=== PATIENT | female | born 1960 | race Caucasian/White ===

== ENCOUNTER 2016-10-14 19:57 | Observation (INO) ==
[2016-10-14 20:46] LABS: Basophils # 0.1 K/mcL (0.0-0.2); Basophils % 0.7 %; Eosinophils # 0.6 K/mcL (0.0-0.6); Eosinophils % 6.8 %; Hematocrit 41.7 % (35.3-44.9); Hemoglobin 13.7 g/dL (11.5-15.4); Immature Granulocytes % 0.8 % (0-4); Lymphocytes # 2.2 K/mcL (0.6-4.6); Lymphocytes % 25.6 %; Mean Corpuscular HGB Conc 32.9 g/dL (31.6-35.5); Mean Corpuscular Hemoglobin 28.9 pg (28.0-33.3); Mean Platelet Volume 12.2 fL (9.4-12.4); Monocytes # 0.6 K/mcL (0.0-1.3); Monocytes % 7.6 %; Neutrophils # 4.9 K/mcL (1.6-8.9); Platelet Count 151 K/mcL (140-400); Red Blood Count 4.74 M/mcL (3.82-4.97); Red Cell Distribution Width 12.8 % (11.5-14.5); Segmented Neutrophils % 58.5 %
[2016-10-14 20:53] LABS: Prothrombin Time 10.7 Seconds (9.4-12.1)
[2016-10-14 20:56] LABS: Activated Partial Thrombo Time 30.2 Seconds (26.0-36.0)
[2016-10-14 21:00] LABS: Calcium 9.9 mg/dL (8.6-10.8)
[2016-10-14 22:03] LABS: Bilirubin,Urine Negative (Negative); Blood,Urine Negative (Negative); Clarity,Urine Clear (Clear); Color,Urine Yellow (Yellow); Glucose,Urine (UA) Normal (Normal); Ketones,Urine Negative (Negative); Leukocyte Esterase,Urine Negative (Negative); Nitrite,Urine Negative (Negative); Protein,Urine Trace mg/dL (Neg-Trace); Urobilinogen,Urine Normal (Normal)
[2016-10-14] MEDS ORDERED: Nitroglycerin 0.4 MG TAB.SUBL SL PRN (23:06)
--- NOTE | 2016-10-14 23:10 | Emergency Department Note ---
Disposition Clinical Impression: Chest pain, Unstable angina pectoris, Hyperglycemia, Noncompliance with medication regimen, Elevated blood pressure reading with diagnosis of hypertension Disposition: Admitted As Inpatient Condition: Fair Referrals: Grace Valerio CNP [Primary Care Provider] - Forms: ED Satisfaction Letter Chest Pain HPI - General Chief Complaint: ED Chest Pain Stated Complaint: CP Time Seen by Provider: 10/14/16 22:59 Source: patient Mode of arrival: ambulatory Limitations: no limitations Vital Signs Reviewed: Yes Nursing Notes Reviewed: Yes - History of Present Illness HPI Narrative: Patient is a 56-year-old white female with history of diabetes hypertension and high cholesterol and prior VT with stent placement, who presents here with complaints of chest pain under her left breast since 4 PM. Patient has not been compliant consistently with her medications, and states that she has been off her medicines for about a week until she just recently got them refilled and restarted 2 days ago. Patient states that she has not seen her pediatric anesthesiologist in over a year and a half, she had been seeing Dr. Fabian, but does admit to occasional episodes of unstable angina which are very short- lived. Patient states this is the longest episode she has experienced and it was associated with nausea. Currently in the emergency department patient complaining of 4/10 ongoing pain in the left anterior chest wall just below her left breast. Patient denies any diaphoresis, no vomiting, no migration into the abdomen or back. Patient denies any lightheadedness or syncope. When asked how her blood sugars have been running patient states "I do not know I do not check them". Patient with no other complaints at this time. Pt complaint: chest pain Severity scale (1-10): 8 - Related Data Home Medications Medication Instructions Recorded Confirmed Amlodipine [Norvasc] 10 mg PO DAILY 05/12/15 05/12/15 Aspirin Enteric Coated [Aspirin EC] 81 mg PO DAILY 05/12/15 05/12/15 Citalopram Hydrobromide [Celexa] 20 mg PO HS 05/12/15 05/12/15 Clopidogrel [Plavix] 75 mg PO DAILY 05/12/15 05/12/15 Doxazosin [Cardura] 2 mg PO BID 05/12/15 05/12/15 Furosemide [Lasix] 20 mg PO DAILY 05/12/15 05/12/15 Gabapentin [Neurontin] 300 mg PO TID 05/12/15 05/12/15 GlipiZIDE XL (24 HR) [Glucotrol XL] 5 mg PO DAILY 05/12/15 05/12/15 Metformin [Glucophage] 1,000 mg PO BIDWM 05/12/15 05/12/15 Metoprolol [Lopressor] 50 mg PO HS 05/12/15 05/12/15 Metoprolol [Lopressor] 100 mg PO QAM 05/12/15 05/12/15 Nitroglycerin [Nitrostat] 0.4 mg SL Q5M PRN 05/12/15 05/12/15 Previous Rx's Medication Instructions Recorded OxyCODONE/APAP 5/325 [Percocet 1 each PO Q6HR PRN #30 tablet 05/12/15 5/325] Sulfamethoxazole/Trimeth DS 1 each PO BID #6 tablet 10/10/16 [Bactrim DS] Allergies Allergy/AdvReac Type Severity Reaction Status Date / Time Penicillins AdvReac Gastrointestinal Verified 10/10/16 06:43 Upset All systems ED: reviewed and negative except as stated. Constitutional: Denies: fever, chills ENT ED: Denies: ear pain, throat pain, congestion Cardiovascular: Reports: chest pain. Denies: palpitations, dyspnea on exertion , orthopnea, edema, syncope, paroxysmal nocturnal dyspnea Respiratory: Denies: cough, dyspnea, wheezes Gastrointestinal: Reports: nausea. Denies: abdominal pain, vomiting, diarrhea Genitourinary: Denies: urgency, dysuria, frequency Musculoskeletal: Denies: back pain, neck pain Integumentary: Denies: rash Neurological: Denies: headache, weakness, numbness, paresthesias, vertigo Psychiatric: Denies: anxiety, depression Endocrine: Denies: fatigue Hematological/Lymphatic: Denies: easy bleeding, easy bruising Chest Pain PMH - Past Medical History Medical history: Reports: asthma, coronary artery disease, diabetes, fibromyalgia, hypertension, other Surgical history: Reports: cataract, cholecystectomy, other Psychiatric history: Reports: no psych history [employer]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 Absent: lymphadenopathy - Chest Chest inspection: Present: normal inspection, symmetric chest wall rise. Absent : tenderness - Respiratory Respiratory exam: Present: normal lung sounds bilaterally, respiratory distress , wheezes, stridor - Cardiovascular Cardiovascular exam: Present: regular rate, normal rhythm, normal heart sounds - Abdominal Exam Abdominal exam: Present: soft, Non-Tender, normal bowel sounds. Absent: distention, guarding, rebound, rigidity - Rectal Exam Rectal exam: Present: deferred - Extremities Exam Extremities exam: Present: normal inspection, full ROM, pedal edema. Absent: tenderness - Back Exam Back exam: Present: normal inspection. Absent: tenderness, CVA tenderness (R), CVA tenderness (L) - Neurological Exam Neurological exam: Present: alert, oriented X3, CN II-XII intact, normal gait, reflexes normal. Absent: motor sensory deficit - Psychiatric Psychiatric exam: Present: normal affect, normal mood - Skin Skin exam: Present: warm, dry. Absent: diaphoresis, pallor Course Course Narrative: Patient is a 56-year-old white female with multiple medical problems and prior chest pain with cardiac catheter and stent placement. Patient returns tonight with chest pain at rest since 4 PM with nausea. Patient took 3 baby aspirin at home with no improvement of her symptoms. Patient had an EKG and labs ordered from triage and upon arrival to room patient's labs are resulted with a negative troponin and a normal chest x-ray. Patient continues to have pain 4 out of 10 in severity at this time. We will initiate nitroglycerin trial and reevaluate. Patient hemodynamically stable at this time and in no acute distress. - Reevaluation(s) Reevaluation #1: Following nitroglycerin administration, 1st SL nitro brought pt's pain to 0 out of 10 in pain reports being chest pain-free. One-inch Nitropaste applied and patient given 4 mg Zofran for nausea. Patient's labs otherwise unremarkable and second troponin is negative. Considering patient's cardiovascular history will admit for further evaluation of chest pain. Chest X-Ray 10/14/16 20:03 IMPRESSION: 1. No acute cardiopulmonary disease. D/ / Vincent Shelby MD / Vincent Shelby MD Interpreting Provider: Vincent Shelby MD Time: 00:32 Vital Signs Temperature 97.5 F L 10/14/16 20:00 Pulse Rate 62 10/14/16 20:00 Respiratory Rate 18 10/14/16 20:00 Blood Pressure 191/97 10/14/16 20:00 O2 Sat by Pulse Oximetry 99 10/14/16 20:00 Temperature 97.5 F L 10/14/16 20:00 Pulse Rate 56 10/15/16 00:38 Respiratory Rate 16 10/15/16 00:38 Blood Pressure 155/86 10/15/16 00:38 O2 Sat by Pulse Oximetry 97 10/15/16 00:38 Oxygen Delivery Oxygen Delivery Room Air Chest Pain - Differential Diagnosis Likely: unstable angina pectoris, chest pain - Medical Records Medical records reviewed: Yes I reviewed the patient's medical records. - Lab Data Lab results reviewed: Yes I reviewed the patient's lab results. Result diagrams: 10/14/16 20:37 10/14/16 20:37 Lab Results 10/14/16 10/14/16 10/14/16 Range/Units 20:37 20:37 20:37 WBC 8.4 (4.3-11.1) K/mcL RBC 4.74 (3.82-4.97) M/mcL Hgb 13.7 (11.5-15.4) g/dL Hct 41.7 (35.3-44.9) % MCV 88.0 (83.0-100.0) fL MCH 28.9 (28.0-33.3) pg MCHC 32.9 (31.6-35.5) g/dL RDW 12.8 (11.5-14.5) % Plt Count 151 (140-400) K/mcL MPV 12.2 (9.4-12.4) fL Immature Gran % 0.8 (0-4) % Seg Neutrophils % 58.5 % Lymphocytes % 25.6 % Monocytes % 7.6 % Eosinophils % 6.8 % Basophils % 0.7 % Neutrophils # 4.9 (1.6-8.9) K/mcL Lymphocytes # 2.2 (0.6-4.6) K/mcL Monocytes # 0.6 (0.0-1.3) K/mcL Eosinophils # 0.6 (0.0-0.6) K/mcL Basophils # 0.1 (0.0-0.2) K/mcL PT 10.7 (9.4-12.1) Seconds INR 1.0 APTT 30.2 (26.0-36.0) Seconds Sodium 138 (136-145) mEq/L Potassium 4.0 (3.5-4.5) mEq/L Chloride 98 (98-109) mEq/L Carbon Dioxide 28 (19-29) mEq/L BUN 20 (7-20) mg/dL Creatinine 1.18 H (0.57-1.11) mg/dL Est GFR ( Amer) 57 L (> 60) Est GFR (Non-Af Amer) 47 L (> 60) BUN/Creatinine Ratio 17 (6-26) Glucose 153 H (70-99) mg/dL Calculated Osmolality 292 (280-300) Calcium 9.9 (8.6-10.8) mg/dL Troponin I (0-0.03) ng/mL Urine Color (Yellow) Urine Clarity (Clear) Urine pH (5.0-8.0) pH Units Ur Specific [place] (1.010-1.025) Urine Protein (Neg-Trace) mg/dL Urine Glucose (UA) (Normal) mg/dL Urine Ketones (Negative) mg/dL Urine Blood (Negative) Urine Nitrite (Negative) Urine Bilirubin (Negative) Urine Urobilinogen (Normal) mg/dL Ur Leukocyte Esterase (Negative) Ur Culture Indicated? (NO) 10/14/16 10/14/16 10/14/16 Range/Units 20:37 21:37 23:16 WBC (4.3-11.1) K/mcL RBC (3.82-4.97) M/mcL Hgb (11.5-15.4) g/dL Hct (35.3-44.9) % MCV (83.0-100.0) fL MCH (28.0-33.3) pg MCHC (31.6-35.5) g/dL RDW (11.5-14.5) % Plt Count (140-400) K/mcL MPV (9.4-12.4) fL Immature Gran % (0-4) % Seg Neutrophils % % Lymphocytes % % Monocytes % % Eosinophils % % Basophils % % Neutrophils # (1.6-8.9) K/mcL Lymphocytes # (0.6-4.6) K/mcL Monocytes # (0.0-1.3) K/mcL Eosinophils # (0.0-0.6) K/mcL Basophils # (0.0-0.2) K/mcL PT (9.4-12.1) Seconds INR APTT (26.0-36.0) Seconds Sodium (136-145) mEq/L Potassium (3.5-4.5) mEq/L Chloride (98-109) mEq/L Carbon Dioxide (19-29) mEq/L BUN (7-20) mg/dL Creatinine (0.57-1.11) mg/dL Est GFR ( Amer) (> 60) Est GFR (Non-Af Amer) (> 60) BUN/Creatinine Ratio (6-26) Glucose (70-99) mg/dL Calculated Osmolality (280-300) Calcium (8.6-10.8) mg/dL Troponin I 0.00 0.00 (0-0.03) ng/mL Urine Color Yellow (Yellow) Urine Clarity Clear (Clear) Urine pH 6.0 (5.0-8.0) pH Units Ur Specific [place] 1.010 (1.010-1.025) Urine Protein Trace (Neg-Trace) mg/dL Urine Glucose (UA) Normal (Normal) mg/dL Urine Ketones Negative (Negative) mg/dL Urine Blood Negative (Negative) Urine Nitrite Negative (Negative) Urine Bilirubin Negative (Negative) Urine Urobilinogen Normal (Normal) mg/dL Ur Leukocyte Esterase Negative (Negative) Ur Culture Indicated? NO (NO) - Radiology Data Radiology results reviewed: Yes I reviewed the patient's radiology results. - EKG Data EKG attestation: Yes I reviewed and interpreted this EKG. EKG results narrative: EKG interpreted by myself without benefit of formal cardiology interpretation shows a normal sinus rhythm at 61 bpm patient with left axis deviation but no evidence of acute ST-T wave changes. No significant change when compared to prior EKG from 10/08/2014
[2016-10-15] MEDS: 0.9 % Sodium Chloride 1,000 ML IVC SCH ×2 (00:08→21:52)
[2016-10-15] MEDS ORDERED: Nitroglycerin 1 INCH/GM PACKET TP ONE (00:25)
[2016-10-15] MEDS ORDERED: Ondansetron 4 MG/2 ML VIAL IVP ONE (00:30)
[2016-10-15] MEDS ORDERED: Ondansetron 4 MG/2 ML VIAL IVP PRN (02:43)
[2016-10-15] MEDS ORDERED: Acetaminophen 325 MG TABLET PO PRN (02:43)
--- NOTE | 2016-10-15 03:08 | Internal Med History&Physical ---
<Vargas James - Last Filed: 10/15/16 03:00> Date of Encounter: 10/15/16 Time of Encounter: 02:00 Assessment and Plan (1) CAD (coronary artery disease) Current visit: Yes Status: Chronic - Unstable angina with no significant ischemic change on EKG and negative troponin so far. - Continue aspirin, metoprolol, Lipitor and nitro prn pain. - Will obtain nuclear stress test for further evaluation. - Continue to trend troponin q6H. - Closely monitor with telemetry. Qualifiers: Coronary Disease-Associated Artery/Lesion type: [place] artery [place] vs. transplanted heart: [place] heart Associated angina: with unstable angina Qualified Code(s): I25.110 - Atherosclerotic heart disease of [place] coronary artery with unstable angina pectoris (2) Diabetes Current visit: Yes Status: Chronic - Will check Hgb A1C. - Start insulin sliding scale with routine AccuCheck. Qualifiers: Diabetes mellitus type: type 2 Diabetes mellitus complication status: with unspecified complications Diabetes mellitus halfway insulin use: without halfway use Qualified Code(s): E11.8 - Type 2 diabetes mellitus with unspecified complications (3) Hypertension Current visit: Yes Status: Chronic - Continue home does antihypertensive regimen. Qualifiers: Hypertension type: essential hypertension Qualified Code(s): I10 - Essential (primary) hypertension (4) Hyperlipidemia Current visit: Yes Status: Chronic - Check lipid panel. - Continue Lipitor. Qualifiers: Hyperlipidemia type: pure hypercholesterolemia Qualified Code(s): E78.00 - Pure hypercholesterolemia, unspecified; E78.0 - Pure hypercholesterolemia (5) DVT prophylaxis Current visit: Yes Status: Acute - SQ heparin. Internal Medicine - H&P: HPI Chief complaint: Chest pain Admitted From: Emergency Dept Plans for Post Hospital Care: Home History of present illness: Ms. Amanda is a 56 year old female with PMH of HTN, hyperlipidemia, DM, morbid obesity, asthma and CAD s/p cardiac cath with stent x1 in October 2014. Patient presented for chest pain starting 4 PM while patient was at work. Patient describes it as intermittent stabbing pain radiating from below left breast to left upper chest. It's same kind of patient had for heart attack. It's aggravated by exertion and alleviated by nitroglycerin. It's associated with constant nausea. Patient reports only one episode of diaphoresis at beginning and denies palpitation, lightheadedness, syncope, dyspnea, vomiting, worsening edema or recent weight gain. Patient admits not strictly compliant with her medications. Patient reports her last echocardiogram and stress test were done in 2014. And her last visit with cardiology was with Dr. Kalpana Fabian in 2015. Patient is full code. Past Med Surg Social Fam HX - Past Medical History Medical history: asthma, coronary artery disease, diabetes, fibromyalgia, hypertension, other Psychiatric history: no psych history - Past Surgical History Surgical History: cholecystectomy, herniorrhaphy, orthopedic, other, other - Social History Smoking Status: Former smoker Smokeless Tobacco Status: No Alcohol use: occasionally Drug use: none - Family History Mother Living Status: Hx Family Cardiac Disorders: Yes Hx Family Endocrine Disorder: Yes Father Living Status: Cause of : Stroke Hx Family Cardiac Disorders: Yes Internal Medicine - H&P: Meds Amlodipine [Norvasc] 10 mg PO DAILY 05/12/15 [History] Aspirin Enteric Coated [Aspirin EC] 81 mg PO DAILY 05/12/15 [History] Citalopram Hydrobromide [Celexa] 20 mg PO HS 05/12/15 [History] Doxazosin [Cardura] 2 mg PO BID 05/12/15 [History] Furosemide [Lasix] 20 mg PO DAILY 05/12/15 [History] GlipiZIDE XL (24 HR) [Glucotrol XL] 5 mg PO DAILY 05/12/15 [History] Metformin [Glucophage] 1,000 mg PO BIDWM 05/12/15 [History] Metoprolol [Lopressor] 50 mg PO HS 05/12/15 [History] Metoprolol [Lopressor] 100 mg PO QAM 05/12/15 [History] Atorvastatin [Lipitor] 40 mg PO HS 10/15/16 [History] Buspirone HCl [Buspar] 5 mg PO TID 10/15/16 [History] Allergies Penicillins Adverse Reaction (Verified 10/10/16 06:43) Gastrointestinal Upset All Systems PM: A 10-system review of systems was performed and is negative for pertinent findings except as documented above in the HPI. - Constitutional Constitutional: no anorexia, no chills, no fever(s), no weight gain, no weight loss - EENT Eyes: no change in vision Ears: no decreased hearing Nose, mouth and throat: no dysphagia, no odynophagia - Cardiovascular Cardiovascular ROS IM: as per HPI, chest pain, diaphoresis (once), no edema, no lightheadedness, no syncope - Respiratory Respiratory: no cough, no dyspnea, no hemoptysis - Gastrointestinal Gastrointestinal: nausea, no abdominal pain, no diarrhea, no hematochezia, no melena, no vomiting - Genitourinary Genitourinary: no difficulty urinating, no dysuria, no hematuria - Musculoskeletal Musculoskeletal ROS IM: arthralgias (Chronic from fibromyalgia.), no myalgias - Integumentary Integumentary IM: no pruritus, no rash - Neurological Neurological ROS: no focal weakness, no numbness, no tingling - Hematologic/Lymphatic Hematologic/Lymphatic: easy bruising, no easy bleeding - Constitutional Vitals: Temp Pulse Resp BP Pulse Ox 98.2 F 64 18 157/70 96 10/15/16 01:52 10/15/16 01:52 10/15/16 01:52 10/15/16 01:52 10/15/16 01:52 General appearance: Present: cooperative, A&O X 3, no acute distress, obese, answers questions appropriately - Head Head exam: Present: atraumatic, normocephalic - Eye Eye exam: Present: EOMI, PERRL, conjuntiva pink, sclera anicteric - Neck Neck exam general surgery: Present: supple, trachea midline. Absent: lymphadenopathy - Respiratory Respiratory exam: Present: CTAB. Absent: accessory muscle use, rales, rhonchi, wheezes - Cardiovascular Cardiovascular exam: Present: RRR, +S1, +S2. Absent: diastolic murmur, gallop, rubs, systolic murmur - GI/Abdominal GI/Abdominal exam: Present: normal bowel sounds, soft, no peritoneal signs. Absent: distended, tenderness - Extremities Exam Extremities exam: Present: pedal edema (Mild), warm, radial pulses palpable and symetrical. Absent: calf tenderness, cyanotic - Neurological Exam Neurological exam: Present: CN II-XII intact, oriented X3, no focal deficits. Absent: pronater drift, facial droop, speech deficit - Skin Skin exam: Present: dry, intact, warm Internal Med - H&P Results - Labs CBC & Chem 7: 10/14/16 20:37 10/14/16 20:37 <[email or web address] R - Last Filed: 10/15/16 05:38> Date of Encounter: 10/15/16 Internal Medicine - H&P: HPI History of present illness: Ms. Amanda is a 56 year old female All Systems PM: A 10-system review of systems was performed and is negative for pertinent findings except as documented above in the HPI. - Constitutional Vitals: Temp Pulse Resp BP Pulse Ox 98.2 F 64 18 157/70 96 10/15/16 01:52 10/15/16 01:52 10/15/16 01:52 10/15/16 01:52 10/15/16 01:52 Internal Med - H&P Results - Labs CBC & Chem 7: 10/14/16 20:37 10/15/16 03:15 Labs: BMP 10/15/16 03:15 Sodium 138 Potassium 3.7 Chloride 101 Carbon Dioxide 25 BUN 17 Creatinine 0.98 Glucose 146 H Calcium 9.1 - Attending Attestation I performed history and physical examination of the patient and discussed management with the Resident. I reviewed the Residents note and agree with documented findings and plan of care. 56 Y/F with h/o CAD s/p stent placement 2 years ago, poor compliance with medications, HTN, hyperlipidemia presents with left sided chest pain, with no radiation. Intermittent chest pain and improved with NTG. O/E: Not in acute distress. Cardiac: RRR EKG: SR, no acute ischemic changes. CXR: no acute cardiopulmonary disease. Troponin negative. Mild elevation of troponin A/P: Chest pain: Trend troponins; stress test
[2016-10-15] MEDS ORDERED: Dextrose Gel 15 GM PO PRN ×2 (03:11)
[2016-10-15] MEDS ORDERED: D5% in Water 1,000 ML IVC PRN (03:11)
[2016-10-15] MEDS ORDERED: *HR* Dextrose 50 % in Water (Syg) 50 ML SYRINGE IVP PRN (03:11)
[2016-10-15 04:41] LABS: BUN/Creatinine Ratio 17 (6-26); Blood Urea Nitrogen 17 mg/dL (7-20); Calcium 9.1 mg/dL (8.6-10.8); Carbon Dioxide 25 mEq/L (19-29); Chloride 101 mEq/L (98-109); Glucose 146 mg/dL (70-99); Osmolality,Calculated 290 (280-300); Potassium 3.7 mEq/L (3.5-4.5); Sodium 138 mEq/L (136-145); eGFR For African Americans > 60 (> 60); eGFR For Non-African Americans 59 (> 60)
[2016-10-15 05:02] LABS: Thyroid Stimulating Hormone 2.957 mcIU/mL (0.350-4.840)
[2016-10-15 05:16] LABS: Chol/HDL Ratio 3.1 (0-4.9); Cholesterol 107 mg/dL (< 200); HDL Cholesterol 34 mg/dL (40-59); LDL Cholesterol,Calculated 34 mg/dL (0-99); Triglycerides 197 mg/dL (< 150)
[2016-10-15] MEDS: *HR* Heparin 5,000 UNIT/ML VIAL SQ SCH ×3 (06:27→21:46)
[2016-10-15] MEDS ORDERED: Regadenoson 0.4 MG/5 ML SYRINGE IVP ONE (06:52)
[2016-10-15] MEDS: Insulin LISPRO 300 UNITS/3 ML VIAL SQ SCH ×3 (08:13→17:04)
[2016-10-15] MEDS: Aspirin Enteric Coated 81 MG Tablet PO SCH (09:03)
[2016-10-15] MEDS: Metoprolol 100 MG TABLET PO SCH (09:03)
[2016-10-15] MEDS: Furosemide 20 MG TABLET PO SCH (09:03)
[2016-10-15] MEDS: amLODIPine 5 MG TABLET PO SCH (09:04)
--- NOTE | 2016-10-15 13:03 | Internal Med Progress Note ---
Date of Encounter: 10/15/16 Time of Encounter: 13:03 - Assessment and plan (1) CAD (coronary artery disease) Current Visit: Yes Status: Chronic Assessment and plan: Unstable angina with no significant ischemic change on EKG and negative troponin so far. Continue aspirin, metoprolol, Lipitor and nitro prn pain. Troponin negative X3 Follow stress test Qualifiers: Coronary Disease-Associated Artery/Lesion type: [place] artery [place] vs. transplanted heart: [place] heart Associated angina: with unstable angina Qualified Code(s): I25.110 - Atherosclerotic heart disease of [place] coronary artery with unstable angina pectoris (2) Chest pain Current Visit: Yes Status: Acute Assessment and plan: As above Qualifiers: Chest pain type: unspecified Qualified Code(s): R07.9 - Chest pain, unspecified (3) Diabetes Current Visit: Yes Status: Chronic Assessment and plan: A1C 8.0 Continue prandial, basal insulin ADA diet Monitor FS Qualifiers: Diabetes mellitus type: type 2 Diabetes mellitus complication status: with unspecified complications Diabetes mellitus senior living insulin use: without 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 Qualified Code(s): E11.8 - Type 2 diabetes mellitus with unspecified complications (4) Hyperlipidemia Current Visit: Yes Status: Chronic Assessment and plan: Continue home meds Qualifiers: Hyperlipidemia type: pure hypercholesterolemia Qualified Code(s): E78.00 - Pure hypercholesterolemia, unspecified; E78.0 - Pure hypercholesterolemia (5) Hypertension Current Visit: Yes Status: Chronic Assessment and plan: continue home meds Qualifiers: Hypertension type: essential hypertension Qualified Code(s): I10 - Essential (primary) hypertension (6) Morbid obesity with BMI of 50.0-59.9, adult Current Visit: Yes Status: Chronic Assessment and plan: Weight loss encouraged - Subjective Interval history: 56 F PMH of HLD, HTN, DM, Morbid Obesity Placed on observation for chest pain work up She is seen at bedside Denies new complains Chest pain has resolved Awaiting second phase of stress test a.m - Constitutional Vitals: Temp Pulse Resp BP Pulse Ox 97.7 F 73 17 149/84 96 10/15/16 10:55 10/15/16 10:55 10/15/16 10:55 10/15/16 10:55 10/15/16 10:55 General appearance: Present: cooperative, A&O X 3, morbidly obese, no acute distress, obese, answers questions appropriately - Head Head exam: Present: atraumatic, normocephalic - Eye Eye exam: Present: PERRL, conjuntiva pink, sclera anicteric Pupils: Present: PERRL - Neck Neck exam general surgery: Present: supple, trachea midline. Absent: lymphadenopathy - Respiratory Respiratory exam: Present: CTAB. Absent: accessory muscle use, rales, rhonchi, wheezes - Cardiovascular Cardiovascular exam: Present: RRR, +S1, +S2. Absent: diastolic murmur, gallop, rubs, systolic murmur - GI/Abdominal GI/Abdominal exam: Present: normal bowel sounds, soft, no peritoneal signs. Absent: distended, tenderness - Extremities Exam Extremities exam: Present: warm, radial pulses palpable and symetrical. Absent : calf tenderness, cyanotic, pedal edema - Neurological Exam Neurological exam: Present: alert, CN II-XII intact, oriented X3, no focal deficits. Absent: pronater drift, facial droop, speech deficit - Skin Skin exam: Present: dry, intact Internal Medicine: Result - Labs CBC & Chem 7: 10/14/16 20:37 10/15/16 03:15 Labs: BMP 10/15/16 03:15 Sodium 138 Potassium 3.7 Chloride 101 Carbon Dioxide 25 BUN 17 Creatinine 0.98 Glucose 146 H Calcium 9.1 Cardiac Enzymes 10/15/16 10/15/16 Range/Units 05:20 11:09 Troponin I 0.00 0.01 (0-0.03) ng/mL - ABG Interpretation ABG results: PT/INR, D-dimer PT 10.7 Seconds (9.4-12.1) 10/14/16 20:37 Consult Discharge Plan - Plan Referrals: Grace Valerio CNP [Primary Care Provider] - 10/24/16 1:15 pm
--- NOTE | 2016-10-15 17:17 | Electrocardiograph Report ---
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
[2016-10-15] MEDS ORDERED: Insulin LISPRO 300 UNITS/3 ML VIAL SQ SCH (21:00)
[2016-10-16] MEDS: *HR* Heparin 5,000 UNIT/ML VIAL SQ SCH (06:06)
[2016-10-16] MEDS ORDERED: Losartan/HCTZ 50-12.5 TABLET PO SCH (09:00)
[2016-10-16] MEDS: Furosemide 20 MG TABLET PO SCH (09:47)
[2016-10-16] MEDS: Metoprolol 100 MG TABLET PO SCH (09:47)
[2016-10-16] MEDS: Aspirin Enteric Coated 81 MG Tablet PO SCH (09:47)
[2016-10-16] MEDS: amLODIPine 5 MG TABLET PO SCH (09:48)
[2016-10-16] MEDS: Insulin LISPRO 300 UNITS/3 ML VIAL SQ SCH ×2 (09:48→12:50)
--- NOTE | 2016-10-16 10:48 | Nuclear Medicine Stress Report ---
Regadenoson Nuclear 2 day Name: Debbie Amanda Date of Study: 10/15/2016 Date: 1960 Ht: 61.0 in Medical Record#: [id number] Age: 56 Wt: 272.0 lb Gender: Female Order #: [id number] Location: [facility] Room: [facility] Supervising Provider: Kemi Bermudez CNP Reading Physician: Aditya Ty DO, FACC, FASWI Ordering Physician: Melida Merino CNP Primary Care Physician: Grace Valerio CNP Stress Technologist: Maricel Berry, AMUSEMENT PARK WORKER,CPFT Clearance Center Manager: Jerrell Hong Indications: Coronary Artery Disease, Chest Pain Impression: Pharmacologic stress ECG is negative for ischemia at level of heart rate achieved. Gated EF = 74%. Small sized, mild intensity, fixed apex defect consistent with artifact. Perfusion imaging was negative for ischemia or infarct. History: Hypertension Diabetes Hypercholesteremia Prior PCI Stress Test Summary: Stress Test Type: Pharmacologic Regadenoson 0.4mg/5ml given IV Baseline Information: Initial Heart Rate: 68 Blood Pressure: 110/62 Stress Information: Test Terminated Due to (primary): As per protocol Maximum Blood Pressure: 108/62 Maximum Heart Rate: 86 Percent Maximum Heart Rate Achieved: 52 Double Product: 9288 METS Reached: 1 Symptoms: No chest symptoms Nuclear Summary: SPECT myocardial perfusion imaging using Tc99m Sestamibi given intravenously was performed at rest and following cardiac stress testing. The resting images were obtained following initial dose of 32.9 mCi. Following stress an additional dose of 35.4 mCi was given at peak exercise or 30 seconds post regadenoson infusion. Medication Given: Time Medication Dose Units Route Findings: Stress Note * Resting ECG demonstrated normal sinus rhythm. * No baseline arrhythmias were noted. * Pharmacologic stress ECG is negative for ischemia at level of heart rate achieved. * No arrhythmias were noted during stress. * Patient had no chest pain during stress. Hemodynamic responses * Normal hemodynamic responses to pharmacologic stress. Study Quality * Study quality is average. Gated EF % * Gated EF = 74%. Left Ventricle * The left ventricle is not dilated. * LVEDV = 122 mL. NORMALS * Normal wall motion. Apical Perfusion Rest * The apex segment shows a mild reduction in perfusion. Apical Perfusion Stress * The apex segment shows a mild reduction in perfusion. TID * No evidence of transient ischemic dilatation. TID ratio * TID ratio = 1.09. Lung Uptake * There is no evidence of increase lung uptake. Updated by Aditya Ty DO, FACSully, RABIA, FASPETER on 10/16/2016 10:40:35 AM electronically signed on 10/16/2016 10:44:41 AM with status of Final
[2016-10-16 11:15] VITALS: BP 162/84
--- NOTE | 2016-10-16 11:17 | Discharge Summary ---
Date of Encounter: 10/16/16 Time of Encounter: 11:16 - Discharge Diagnosis (1) CAD (coronary artery disease) Priority: Primary Status: Chronic Qualifiers: Coronary Disease-Associated Artery/Lesion type: [place] artery [place] vs. 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9, adult Priority: Secondary Status: Chronic - Discharge Medications Home Medications: Amlodipine [Norvasc] 10 mg PO DAILY 05/12/15 [History] Aspirin Enteric Coated [Aspirin EC] 81 mg PO DAILY 05/12/15 [History] Citalopram Hydrobromide [Celexa] 20 mg PO HS 05/12/15 [History] Furosemide [Lasix] 20 mg PO DAILY 05/12/15 [History] GlipiZIDE XL (24 HR) [Glucotrol XL] 5 mg PO DAILY 05/12/15 [History] Metformin [Glucophage] 1,000 mg PO BIDWM 05/12/15 [History] Metoprolol [Lopressor] 50 mg PO HS 05/12/15 [History] Metoprolol [Lopressor] 100 mg PO QAM 05/12/15 [History] Albuterol Sulfate [Albuterol Inhaler] 2 puff IH Q6HR PRN 10/15/16 [History] Atorvastatin [Lipitor] 40 mg PO HS 10/15/16 [History] Buspirone HCl [Buspar] 5 mg PO TID 10/15/16 [History] Losartan/Hydrochlorothiazide [Hyzaar 100-25 Tablet] 1 tab PO DAILY 10/15/16 [ History] Nitroglycerin [Nitrostat] 0.4 mg SL AD PRN 10/15/16 [History] Allergies/Adverse Reactions: Allergies Penicillins Adverse Reaction (Verified 10/10/16 06:43) Gastrointestinal Upset Procedures/tests Complete & Pending: Procedures Performed prior 72 hours Category Date Time Status NM alex perf SPECT multi [NM] Routine Exams 10/15/16 02:55 Taken SP pharm nuclear stress Routine Y 10/15/16 08:00 Completed Date of admission: 10/15/16 01:17 Primary care physician: Grace Valerio CNP Discharging clinician: Bennie Preciado Anticipated date of discharge: 10/16/16 - Patient Status Disposition: Home, Self-Care Condition: Good Functional capacity at discharge: independent ambulation Overall status at discharge: patient is back to baseline - Discharge Instructions Instructions: Chest Pain (DC), Heart Healthy Diet (DC), Diabetes Mellitus Type 2 in Adults (DC) Follow Up With: Grace Valerio CNP [Primary Care Provider] - 10/24/16 1:15 pm - Diet and Activity Activity: resume usual activities as tolerated Diet: diabetic diet, low fat, low cholesterol, low salt diet Interval History: See below Hospital course: Ms. Amanda is a 56 year old female She has a PMH of DM, Morbid Obesit, HLD, HTN She was admitted to observation after complains of chest pain She was worked up for chest pain to rule out ACS EKG was unremarkable, troponin negative X3, stress test was negative CXR was unremarkable She did not have chest pain throughout the admission She is stable for discharge home, educated on lifestyle recommendations , weight loss, glucose control and follow up with PCP Home medications have been resumed - Time Spent with Patient Total time spent providing and/or coordinating discharge services: Less than 30 minutes - Constitutional Vitals: Temp Pulse Resp BP Pulse Ox 97.8 F 59 16 162/84 96 10/16/16 11:14 10/16/16 11:14 10/16/16 11:14 10/16/16 11:14 10/16/16 11:14 General appearance: Present: cooperative, A&O X 3, morbidly obese, no acute distress, obese, answers questions appropriately - Head Head exam: Present: atraumatic, normocephalic - Eye Eye exam: Present: PERRL, conjuntiva pink, sclera anicteric Pupils: Present: PERRL - Neck Neck exam general surgery: Present: supple, trachea midline. Absent: lymphadenopathy - Respiratory Respiratory exam: Present: CTAB. Absent: accessory muscle use, rales, rhonchi, wheezes - Cardiovascular Cardiovascular exam: Present: RRR, +S1, +S2. Absent: diastolic murmur, gallop, rubs, systolic murmur - GI/Abdominal GI/Abdominal exam: Present: normal bowel sounds, soft, no peritoneal signs. Absent: distended, tenderness - Extremities Exam Extremities exam: Present: warm, radial pulses palpable and symetrical. Absent : calf tenderness, cyanotic, pedal edema - Neurological Exam Neurological exam: Present: alert, CN II-XII intact, oriented X3, no focal deficits. Absent: pronater drift, facial droop, speech deficit - Skin Skin exam: Present: dry, intact
== END 2016-10-16 14:59 | disposition home or self-care (01) ==
LOC: EMEROO 19:57 → 3BNU 19:57 → SUATTDRO 10-15 01:17 → 3BNU 10-15 01:38
PROVIDERS: ADMIT Internal Medicine; ATTEND Internal Medicine